=== PATIENT | female | born 1965 | race Caucasian/White ===

== ENCOUNTER → 2023-05-23 | Outpatient (CLI) | payer OTHER ==
[2023-05-23 12:48] VITALS: BP 115/78; PULSE 91; RESP 12; TEMP 98.4
--- NOTE | 2023-05-23 14:00 | P.SLEEP ---
History of Present Illness DATE: 05/23/2023 CONSULTATION/NEW PATIENT EVALUATION HISTORY OF PRESENT ILLNESS/SLEEP-WAKE EVALUATION: 57-year-old lady had been e valuated in the sleep center for possible obstructive sleep apnea hypopnea syndrome and significant excessive daytime sleepiness. Patient had home sleep apnea test about 6 months ago which did not show any significant abnormalities. SLEEP SCHEDULE: Usually sleep schedule from 11 PM to 8 AM on weekdays and until 11 AM on weekend. Patient could sleep more than 12 hours easily. FALLING ASLEEP: Sometimes patient has difficulties with falling asleep. DURING SLEEP: []Patient wakes up from sleep 2 times. Positive history of occasional snoring. Sometimes patient has movements during the sleep turning from 1 side to another site multiple times. No history of hypnogogical hallucinations, sleep paralysis, or cataplexy. DURING THE DAY/WAKE STATE: In the morning patient wake up tired, has di fficulties to pay attention, has problems with memory, concentration, depression and anxiety. Correll sleepiness scale is increased to 10 and this is while patient is on treatment with Concerta. Usually patient does not take naps, does not feel refreshed after naps. PAST MEDICAL HISTORY: Atrial fibrillation, diabetes mellitus, ADHD, depression. PAST SURGICAL HISTORY: Tonsillectomy, . MEDICATIONS: Please see below. SOCIAL HISTORY: Please see below. FAMILY HISTORY: Hypertension, heart problems, CHF. REVIEW OF SYSTEMS: Awakenings from sleep, tiredness and sleepiness during the day. No fevers. No double vision. No recent chest pain. No shortness of breath. No abdominal pain. No bleeding episodes. No blood in urine. No seizure episodes. PHYSICAL EXAMINATION: GENERAL: A pleasant patient without any distress. VITAL SIGNS: Please see be below, body mass index 23.1. HEENT: PERRETHAN, EOMI. Evaluation of oropharynx showed tongue protrudes midline, low position of soft palate Mallampati 2, short distance between soft palate and posterior pharyngeal wall. NECK: Supple. No JVD. Thyroid is not palpable. 13 inches in circumference. LUNGS: Clear to percussion and to auscultation. Good air exchange. No wheezing or rhonchi. HEART: S1, S2 regular. No murmurs, gallops or rubs. ABDOMEN: Soft and nontender. Bowel sounds are present. No organomegaly appreciated. EXTREMITIES: No clubbing or cyanosis. CONCRETE STONE FABRICATOR: Awake, alert, and oriented x3. Cranial nerves 2 to 7 intact. There is no fasciculation or atrophy noted. No focal deficits observed. ASSESSMENT: 1. Snoring, multiple awakenings from sleep, short distance between soft palate and posterior pharyngeal wall, retrognathia 2 mm sleepiness. Previous home sleep apnea test was negative. Possible obstructive sleep apnea hypopnea syndrome. 2. Significant amount of movements during the sleep, possible periodic limb movements. 3. Significant excessive daytime sleepiness Correll Sleepiness Scale is 10 while patient is on treatment with Concerta 18 mg a day. Patient could sleep many hours easily more than 12. Differential diagnosis would include idiopathic hypersomnia. 4. Diabetes mellitus recent hemoglobin A1c 6.0 according to patient. 5 history of atrial fibrillation, s/p cardiac ablation in 2013. 6 . Depression. 7. ADHD. 8. Status post tonsillectomy. 9 . Status post . 10. Status post cardiac cath in 2023. PLAN: 1. Polysomnography for evaluation of patient's breathing during sleep, to check for possible periodic limb movements. Multiple sleep latency test, if sleep study is negative for obstructive sleep apnea hypopnea syndrome. No Concerta in the day of multiple sleep latency test. 2. Following plan after reading sleep study 3. Preferable position during sleep on the side. 4. No driving if patient feels any sleepiness. Patient is aware of civil and criminal liability for unsafe driving. 5. Sleep hygiene with regular sleep time for at least 7.5-8 hours . 6. Watching weight. Thank you very much for referring this patient for consultation. Sincerely, Ty Arango MD, PhD, FAASM. Diplomat of [place] Board of Sleep Medicine, Sleep Medicine Board by [place] Board of Medical Specialities [place] Board of Internal Medicine Spanish [employer] [place] Past Medical History Past Medical History: Asthma, Diabetes Mellitus History of Any Multi-Drug Resistant Organisms: None Reported Past Surgical History: Ablation, Section, Heart Catheterization, Tonsillectomy Past Anesthesia/Blood Transfusion Reactions: Previous Problems w/ Anesthesia Additional Past Anesthesia/Blood Transfusion Reaction / Comment(s): hard time waking up Past Psychological History: No Psychological Hx Reported Smoking Status: Never smoker Past Alcohol Use History: None Reported Past Drug Use History: None Reported - Past Family History Mother Family Medical History: Congestive Heart Failure (CHF) Father Family Medical History: Diabetes Mellitus Medications and Allergies Home Medications Medication Instructions Recorded Confirmed Type Aspirin/Omeprazole 1 each PO DAILY 05/23/23 05/23/23 History [Aspirin-Omeprazole Dr 81-40 mg] Citalopram Hydrobromide [CeleXA] 10 mg PO DAILY 05/23/23 05/23/23 History Escitalopram Oxalate [Lexapro] 20 mg PO DAILY 05/23/23 05/23/23 History Lubiprostone [Amitiza] 8 mcg PO PRN 05/23/23 History Methylphenidate HCl [Concerta] 18 mg PO DAILY 05/23/23 05/23/23 History Pioglitazone [Actos] 15 mg PO DAILY 05/23/23 05/23/23 History metFORMIN HCL 500 mg PO BID 05/23/23 05/23/23 History sitaGLIPtin [Januvia] 50 mg PO DAILY 05/23/23 05/23/23 History Allergies Allergy/AdvReac Type Severity Reaction Status Date / Time codeine Allergy Vomiting Unverified 05/23/23 12:05 Penicillins Allergy Rash/Hives Unverified 05/23/23 12:05 Physical Exam Vitals: Vital Signs Temp Pulse Resp BP Pulse Ox 05/23/23 12:23 98.4 F 91 12 115/78 99 Intake and Output 05/22/23 05/23/23 05/23/23 22:59 06:59 14:59 Other: Weight 62.142 kg Sleep Note - Sleep Data ESS Total: 10 - Sleep Note Sleep Note: Temperature: 98.4 F Pulse Rate: 91 Respiratory Rate: 12 Blood Pressure: 115/78 SpO2: 99 Height: 5 ft 4.5 in Weight: 62.142 kg BMI: Neck Circumference: 13
== END ==
LOC: 3 N SLEEP 11:50
PROVIDERS: ATTEND Internal Medicine
DX: R06.83 Snoring (principal); M26.19 Other specified anomalies of jaw-cranial base relationship; G47.10 Hypersomnia, unspecified; G47.8 Other sleep disorders; E11.9 Type 2 diabetes mellitus without complications; F32.A Depression, unspecified; F90.9 Attention-deficit hyperactivity disorder, unspecified type; Z86.79 Personal history of other diseases of the circulatory system; Z98.890 Other specified postprocedural states; Z90.89 Acquired absence of other organs; Z88.5 Allergy status to narcotic agent; Z88.0 Allergy status to penicillin; Z79.84 Long term (current) use of oral hypoglycemic drugs
CPT/HCPCS: 99211

== ENCOUNTER 2023-07-01 19:45 | Outpatient (CLI) | payer OTHER ==
[2023-07-02 20:56] LABS: Urine Alcohol Negative (Negative); Urine Barbiturate Negative (Negative); Urine Cocaine Negative (Negative); Urine Methadone Negative (Negative); Urine Opiates Negative (Negative); Urine Phencyclidine Negative (Negative)
--- NOTE | 2023-07-04 12:02 | P.PCN ---
Description of Procedure: POLYSOMNOGRAPHY AND MSLT REPORT PROCEDURE(S)/DATE(S): Polysomnography 07/01/2023, multiple sleep latency test 07/02/2023. CLINICAL: Patient has been seen in the sleep center for evaluation of obstructive sleep apnea-hypopnea syndrome. Please see my consultation. Sleep study has been done for evaluation of patient breathing during the sleep. PROCEDURE: The standard montage for clinical polysomnography included the electroencephalogram, the electrooculogram, the mentalis surface elect romyography and Lead II cardiography. The respiratory battery consisted of measurements of nasal/buccal air flow, pressure transducer measurements from nose, thoracic and/or abdominal effort and intercostal surface electromyography. Video monitoring has been done to check for any parasomnia events. Nocturnal oxyhemoglobin saturations were obtained by finger oximetry. Step-randolph titration with positive airway pressure was utilized to control the respiratory events, if necessary. RESULTS: During the diagnostic sleep study sleep efficiency was slightly decreased to 81.6%. Latency to sleep onset was significantly prolonged to 60.5 min. Sleep architecture showed stage NI was short 2.6%, Delta sleep was absent 0%, REM sleep was slightly decreased to 18.4%. Respiratory channel showed 5 obstructive apneas, 0 mixed apneas, 0 central apneas, 0 hypopneas with lowest oxygen level 92%. Total apnea hypopnea index was 0.8. Heart rate was in the range between 69 and 76, average 72. EMG showed 0 periodic limb movements per hour. Multiple sleep latency test have been done on the following day and consisted from 5 naps. Mean sleep latency was 11.9 minutes. No sleep onset REM periods have been documented. IMPRESSIONS: 1. No significant respiratory abnormalities have been documented during the sleep study. Normal oxygenation during the sleep. 2. No significant periodic limb movements have been documented. 3. Multiple sleep latency test did not confirmed significant sleepiness, which by today's criteria's is not consistent with diagnosis of narcolepsy or idiopathic hypersomnia. Please see other impressions from consultation PLAN: 1. Sleep hygiene with regular time in bed for 9 hours.. 2. No driving if feeling sleepiness. 3. Follow-up visit in 1 year or earlier, if patient will not improve her alertness during the day. Thank you very much for allowing me to participate in the management of your patient. Sincerely, Ty Arango MD, PhD, FAASM. Diplomat of [place] Board of Sleep Medicine, Sleep Medicine Board by [place] Board of Internal Medicine [employer] [facility] [place] cc: Pepe Juárez DO
== END 2023-07-02 17:35 | disposition home or self-care (01) ==
LOC: 3 N SLEEP 19:45
PROVIDERS: ATTEND Internal Medicine
DX: G47.33 Obstructive sleep apnea (adult) (pediatric) (principal); Z88.5 Allergy status to narcotic agent; Z88.0 Allergy status to penicillin
CPT/HCPCS: 80306; 95805; 95810

== ENCOUNTER → 2023-07-04 | Outpatient (CLI) | payer OTHER ==
[2023-07-04 11:25] VITALS: BP 133/89; PULSE 90; RESP 16; TEMP 97.7
--- NOTE | 2023-07-04 12:44 | P.PN ---
Subjective DATE: 07/04/2023 FOLLOW UP VISIT. Patient returned to sleep center for follow-up visit to discuss results of sleep studies and following plan. I discussed results of sleep studies with patient in details. During polysomnogram no significant respiratory abnormalities have been documented, normal oxygenation during the sleep. No significant periodic limb movements during sleep study. Multiple sleep latency test have been done on the following day, consisted from 5 naps. Mean sleep latency was 11.9 minutes, which did not confirm diagnosis of narcolepsy or idiopathic hypersomnia. No sleep onset REM have been documented. Patient sometimes feels sleepiness during the day. Baldwin sleepiness scale is 8, which is in normal range. Long sleep efficiency have been documented during the polysomnogram at night. MEDICATIONS:1. Concerta 18 mg once a day 2. Lexapro 20 mg once a day 3. Celexa 10 mg once a day 4. Metformin 500 mg twice a day During physical exam: GENERAL: A pleasant patient without any distress. VITAL SIGNS: Please see below. HEENT: PERRLA, EOMI. NECK: Supple. No JVD. LUNGS: Clear to percussion and to auscultation. Good air exchange. No wheezing or rhonchi. HEART: S1, S2 regular. ABDOMEN: Soft and nontender. EXTREMITIES: No clubbing or cyanosis. RIGGER: Awake, alert, and oriented x3. No focal deficit. Impressions: 1. No significant respiratory abnormalities given documented during the sleep test. 2. No periodic limb movements. 3. Multiple sleep latency test did not confirmed pathological sleepiness. 4. History of atrial fibrillation, status post cardiac ablation. 5. Depression. 6. ADHD. 7. Status post tonsillectomy. 8. Status post cardiac cath in 2023. 9. Status post . Plan: 1. Patient patient is on treatment with Concerta for ADHD, which would have positive effect for her alertness during the day. 2. Sleep hygiene with regular time in bed for at least 9 hours. 3. Precautions related to driving. No driving if feel any sleepiness. Patient is aware about civil and criminal liability for unsafe driving, promised to follow recommendations. 4. Follow up visit in 1 year or earlier if patient alertness will not improve. Thank you very much for allowing me to participate in the management of your patient. Ty Arango MD, PhD, FAASM. Diplomat of [place] [employer] Sleep Medicine, Sleep Medicine Board by [place] [employer] of Internal Medicine [facility] [place] cc: Pepe Juárez DO Objective - Vital Signs Vital signs: Vital Signs Temp 97.7 F 07/04/23 11:24 Pulse 90 07/04/23 11:24 Resp 16 07/04/23 11:24 BP 133/89 07/04/23 11:24 Pulse Ox 97 07/04/23 11:24 FiO2
== END ==
LOC: 3 N SLEEP 11:03
PROVIDERS: ATTEND Internal Medicine
DX: F32.A Depression, unspecified (principal); F90.9 Attention-deficit hyperactivity disorder, unspecified type; Z86.79 Personal history of other diseases of the circulatory system; Z98.890 Other specified postprocedural states; Z90.89 Acquired absence of other organs; Z79.899 Other long term (current) drug therapy; Z88.0 Allergy status to penicillin; Z88.5 Allergy status to narcotic agent
CPT/HCPCS: 99212